=== PATIENT | male | born 1985 | race Hispanic/Latino ===

== ENCOUNTER 2019-06-16 20:56 | Emergency (ER) | payer SELFPAY ==
[2019-06-16] MEDS ORDERED: ASPIRIN 325 MG TABLET ONE (21:12)
[2019-06-16 21:26] LABS: BASOPHILS % (AUTO) 0.8 % (0.0-5.0); EOSINOPHILS % (AUTO) 2.7 % (0.0-8.0); HEMATOCRIT 42.4 % (42-54); LYMPHOCYTES % (AUTO) 31.9 % (21.0-51.0); MEAN CORPUSCULAR HEMOGLOBIN 33.1 pg (27.0-33.0); MEAN CORPUSCULAR HGB CONC 34.8 g/dL (32.0-36.0); MEAN CORPUSCULAR VOLUME 95.3 fL (79-99); MONOCYTES % (AUTO) 7.7 % (3.0-13.0); NEUTROPHILS % (AUTO) 56.9 % (40.0-77.0); NUCLEATED RED BLOOD CELLS 0.1 % (0.0-0.19); PLATELET COUNT (AUTO) 206 K/uL (130-400); RED BLOOD CELL COUNT(AUTO) 4.45 MIL/uL (4.50-6.20); RED CELL DISTRIBUTION WIDTH 12.9 % (11.0-15.5); WHITE BLOOD COUNT (AUTO) 9.4 K/uL (4.8-10.8)
[2019-06-16 21:41] LABS: B-TYPE NATRIURETIC PEPTIDE 6 pg/mL (0-100); POTASSIUM 3.6 mmol/L (3.5-5.1)
[2019-06-16 21:44] LABS: INR 0.97 (0.85-1.15); PARTIAL THROMBOPLASTIN TIME 27.1 SEC (26.3-35.5); PROTHROMBIN TIME 10.2 SEC (9.6-11.6)
[2019-06-16 21:59] LABS: ALBUMIN 3.8 g/dL (3.5-5.0); BILIRUBIN,TOTAL 0.3 mg/dL (0.2-1.0); TOTAL PROTEIN, SERUM 7.2 g/dL (6.0-8.3)
[2019-06-16] MEDS ORDERED: KETOROLAC TROMETHAMINE 30MG/ML ONE (22:14)
[2019-06-16] MEDS ORDERED: SODIUM CHLORIDE 0.9% 1000ML 1,000 ML IV ONE (22:15)
== END 2019-06-16 22:39 | disposition home or self-care (01) ==
LOC: EDH 20:56
DX: G89.29 Other chronic pain (principal); R07.89 Other chest pain; Z98.890 Other specified postprocedural states; Z72.0 Tobacco use
CPT/HCPCS: 36415; 71045; 80053; 82550; 83874; 83880; 84484; 85025; 85610; 85730; 93005; 96374; 99285; J1885; J7030